=== PATIENT | male | born 1940 | race Caucasian/White ===

== ENCOUNTER → 2017-02-02 | Outpatient (CLI) | payer BC ==
[~2017-02-02] MED LIST: ASPCH81X PO; CHOL1000 PO; IBAN150T PO; RANI150T3 PO; TERA1CAP PO; VITATAB19 PO
== END | disposition home or self-care (01) ==
LOC: C.LAB1850 13:01
PROVIDERS: ATTEND Urology
DX: Z12.5 Encounter for screening for malignant neoplasm of prostate (principal)

== ENCOUNTER 2017-07-15 07:57 | Emergency (ER) | payer BC ==
[~2017-07-15] VITALS: Ht 182.9 cm; Wt 69.4 kg
[2017-07-15 07:58] VITALS: TEMP 36.3; Ht 182.9 cm; Wt 69.4 kg
[2017-07-15 09:15] LABS: BASO ABS # 0.05 K/uL (0-0.2); COMPLETE YES; EOS % 2.1 %; HEMATOCRIT 43.1 % (42-52); IG% 0.2 %; LYMPH % 14.4 %; MEAN CELL VOLUME 98.6 fL (80-100); MEAN CORPUSCULAR HEMOGLOBIN 32.5 pg (25-34); MEAN CORPUSCULAR HGB CONC 32.9 g/dl (32-36); MEAN PLATELET VOLUME 11.3 fL (7.4-10.4); MONO % 8.8 %; NEUT % 73.5 %; PLATELET COUNT 186 K/uL (130-400); RED BLOOD COUNT 4.37 M/uL (4.7-6.1); WHITE BLOOD COUNT 4.87 K/uL (4.8-10.8)
[2017-07-15 09:32] LABS: PROTHROMBIN TIME (PATIENT) 10.8 SECONDS (9.0-12.0)
[2017-07-15 09:33] LABS: BLOOD UREA NITROGEN 17 mg/dl (7-18); BUN/CREATININE RATIO 17.5 (10-20); CALCIUM 8.6 mg/dl (8.5-10.1); CARBON DIOXIDE 30 mmol/L (21-32); CHLORIDE 108 mmol/L (98-107); CREATININE 0.97 mg/dl (0.60-1.40); GLUCOSE 82 mg/dl (70-99); POTASSIUM 4.3 mmol/L (3.5-5.1); SODIUM 142 mmol/L (136-145)
[2017-07-15 09:37] LABS: CKMB/CK RATIO 1.7 (0-3.0)
--- NOTE | 2017-07-15 09:52 | DIAGNOSTIC IMAGING REPORT ---
ADDENDUM Addendum: The initial impression was incorrect. 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 A follow-up MRA or CTA is recommended. Electronically signed by: Hesham Wiley M.D. 07/15/2017 10:10 AM Dictated Date/Time: 07/15/2017 10:[address] OF THE HEAD WITHOUT CONTRAST CLINICAL HISTORY: L hand/leg tingling, facial tingling COMPARISON STUDY: No previous studies for comparison. CT DOSE: 823.94 mGycm TECHNIQUE: Helical axial images of the head were obtained without IV contrast. Automated exposure control was utilized for the study. A dose lowering technique was utilized adhering to the principles of ALARA. FINDINGS: No acute intracranial hemorrhage, midline shift or mass effect is present. Ventricular system is unremarkable for age. The basilar cisterns are patent. There are no extra-axial collections. There is a suspected old lacunar infarct within the left cerebellar hemisphere. There is a 1.1 cm hypodensity within the right basal ganglia. There is prominence of the right MCA bifurcation with an equivocal 6 mm aneurysm shown on axial image 12 of 32.] Matter hypodensity suggests small vessel disease. There are no findings to suggest acute dural sinus thrombosis or acute territorial infarct. There are no significant calvarial abnormalities. IMPRESSION: 1. No acute intracranial hemorrhage or mass effect. 2. 1.1 cm right basal ganglia hypodensity. 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 3. Possible 6 mm right MCA bifurcation aneurysm. A follow-up MRA or CTA is recommended. Electronically signed by: Hesham Wiley M.D. 07/15/2017 9:50 AM Dictated Date/Time: 07/15/2017 9:46 AM
[2017-07-15] MEDS ORDERED: VITATAB19 PO (10:02)
[2017-07-15] MEDS ORDERED: RANI150T3 PO (10:02)
[2017-07-15] MEDS ORDERED: IBAN150T PO (10:02)
[2017-07-15] MEDS ORDERED: TERA1CAP PO (10:02)
[2017-07-15] MEDS ORDERED: CHOL1000 PO (10:02)
[2017-07-15] MEDS ORDERED: ASPCH81X PO (10:02)
--- NOTE | 2017-07-15 10:20 | EMERGENCY ROOM VISIT NOTE ---
ED Visit Note First contact with patient: 08:02 I have personally seen and evaluated the patient with the physician research program assistant. I agree with the diagnostic/management decisions and have personally been involved in these decisions and agree with the diagnosis.
[2017-07-15] MEDS ORDERED: OPTIRAY 320 IV PRN (10:30)
--- NOTE | 2017-07-15 11:18 | DIAGNOSTIC IMAGING REPORT ---
CT ANGIOGRAPHY OF THE NECK WITH CONTRAST CLINICAL HISTORY: Left sided numbness and tingling. Abnormal head CT. COMPARISON STUDY: Carotid ultrasound August 20, [address] performed earlier today. Technique: CT angiography of the carotid and vertebral arteries was obtained using [employer] 320 IV and 3D reconstruction on an independent workstation. NASCET criteria was utilized. A dose lowering technique was utilized adhering to the principles of ALARA. CT DOSE: 767.92 mGycm Findings: Lung apices are clear. No cervical lymphadenopathy is identified. The bilateral common carotid, internal carotid and vertebral arteries are patent. There is no significant stenosis or evidence of dissection within these vessels. The right vertebral artery is dominant. There is mild atherosclerotic plaque within the bilateral cavernous carotids without significant stenosis. There is no right ICA terminus aneurysm. The possible aneurysm on prior head CT was artifactual. Please note that the entirety of the intracranial circulation was not imaged on this exam but the internal carotid arteries were fully imaged on this study. Visualized portions of the posterior circulation are intact. The left A1 segment is hypoplastic. IMPRESSION: 1. No right internal carotid artery terminus aneurysm. The possible aneurysm on prior head CT was artifactual. 2. Unremarkable CTA of the neck. No significant stenosis. No dissection. Electronically signed by: Hesham Wiley M.D. 07/15/2017 11:17 AM Dictated Date/Time: 07/15/2017 11:07 AM
[2017-07-15 13:20] VITALS: BP 144/60; PULSE 61; O2SAT 96
--- NOTE | 2017-07-21 19:07 | EMERGENCY ROOM VISIT NOTE ---
History First contact with patient: 08:02 Chief Complaint: NEURO SYMPTOMS Stated Complaint: NUMBNESS IN FOOT, HAND, NOSE, LEFT SIDE Nursing Triage Summary: Pt. reports waking up around 2 or 3 this morning with numbness and tingling of left arm and leg. He states this is similar to symptoms he gets with his migraines. He took his migraine medication and went back to sleep. He woke up this morning and the numbness in the left extremities continued and was accompanied by numbness across the left side of his face and fullness in his head. Denies confusion, weakness, headache or blurred vision. Pt. states he ate breakfast as normal. He took a low dose aspirin before coming to the ED. History of Present Illness The patient is a 77 year old white male who presents to the Emergency Room with complaints of numbness and tingling in his left arm and leg. He states he has had intermittent tingling in his hands since . His leg symptoms began this morning when he woke up around 2 or 3 AM. He states he similar symptoms with his frequent migraine headaches he took his migraine medication in the early hours and went back to sleep. He awoke this morning with continued symptoms, but no headache. He also felt as though his nose was numb. All of these symptoms have resolved at this time. He denies any difficulty with speech. No difficulty with motor function. He denies any change in strength. No prior history of stroke. No nausea or vomiting. No change in medications. No other complaints. Review of Systems REVIEW OF SYSTEM: HEENT: No dizziness, visual problems, hearing loss, or tinnitus. There is no difficulty swallowing and no oral lesions are present. LYMPH: No adenopathy. PULMONARY: No cough, shortness of breath, sputum production or hemoptysis. CARDIOVASCULAR: No chest pain, palpitations, shortness of breath or peripheral edema. GASTROINTESTINAL: No diarrhea, constipation, nausea, vomiting, or abdominal pain. GENITOURINARY: No dysuria, frequency, urgency or nocturia. NEUROLOGIC: No weakness, muscle tenderness, epilepsy or history of neurological problems. Positive history of chronic headaches. MUSCULOSKELETAL: No history of joint tenderness/swelling. Positive history of arthritis and arthralgias. SKIN: No rashes or lesions. PSYCHIATRIC: No history of depression or mental illness. ENDOCRINE: No history of diabetes, thyroid disorders, or abnormal hair growth. Past Medical/Surgical History Medical history: Significant for migraine headaches Previous surgeries: None Family History Noncontributory. Parents are . Social History Smoking Status: Never Smoker Smokeless Tobacco Use: No Alcohol Use: none Drug Use: none Marital Status: single Housing Status: lives alone Occupation Status: employed Current/Historical Medications Scheduled Aspirin (Aspirin Chewable), 81 MG PO DAILY Cholecalciferol (Vitamin D3), 1 TAB PO DAILY Ibandronate Sodium (Boniva), 150 MG PO MONTHLY Terazosin Hcl (Hytrin), 1 MG PO QPM Vitamin A-Beta Carotene (Vitamin A), 1 TAB PO DAILY Scheduled PRN Ranitidine Hcl (Zantac), 150 MG PO DAILY PRN for GI Upset Allergies Coded Allergies: No Known Allergies (Verified , 07/15/17) Physical Exam Vital Signs Date Time Temp Pulse Resp B/P (MAP) Pulse Ox O2 Delivery O2 Flow Rate FiO2 07/15/17 13:20 61 13 144/60 96 07/15/17 11:35 60 14 147/70 97 Room Air 07/15/17 10:00 60 12 139/76 97 Room Air 07/15/17 09:34 61 21 144/69 97 Room Air 07/15/17 09:00 61 14 125/67 95 Room Air 07/15/17 08:40 61 13 137/68 96 Room Air 07/15/17 08:36 67 07/15/17 07:58 36.3 83 18 127/79 96 Room Air Pain Rating (0-10): 0 Physical Exam Gen.: Well-developed, well-nourished, elderly white male, in no acute distress. Laying on a bed. Looks younger than his stated age. Skin:Warm and dry with good turgor. No rashes or lesions. No ecchymosis or erythema. The patient is not diaphoretic. No abrasions. HEENT: Normocephalic atraumatic. Eyes PERRLA, EOMI. No conjunctiva or scleral injection. Ears TMs intact bilaterally with good light reflexes. No erythema or bulging. No hemotympanum. Canals are patent. Nares patent bilaterally without turbinate enlargement. No significant drainage. No epistaxis. Oropharynx without erythema or exudate. Uvula midline, oral mucosa moist. No lesions present. Heart: Heart RRR. No MGR. Peripheral pulses are 2+. Lungs: Lungs are clear to auscultation. No crackles rhonchi or wheezing. Good air movement. The patient is able to take a deep breath. Abdomen: Abdomen was inspected, auscultated, and palpated. Bowel sounds present x 4. Soft, nontender to palpation. No hepato-splenomegaly. No masses noted. No rebound. Musculoskeletal: Gross motor function is intact to the upper and lower extremities. Symmetric strength for resisted motion. Normal exin-[id number] bilaterally. He is able to raise all 4 extremities against resistance. Neurologic: Cranial nerves II through XII are intact. Gross sensation is intact across the upper and lower extremities by soft touch. Sensation is symmetric. No tingling. Normal stroke scale examination. Medical Decision & Procedures ER Provider Diagnostic Interpretation: CT scan imaging of the brain was performed. This was read by radiology as questionable for a possible 6 mm right internal carotid artery terminus aneurysm lesion. CT scan of the neck was performed with IV contrast. This was read by radiology as entirely normal. Laboratory Results 07/15/17 08:40 Red Blood Count 4.37, Mean Corpuscular Volume 98.6, Mean Corpuscular Hemoglobin 32.5, Mean Corpuscular Hemoglobin Concent 32.9, Mean Platelet Volume 11.3, Neutrophils (%) (Auto) 73.5, Lymphocytes (%) (Auto) 14.4, Monocytes (%) (Auto) 8.8, Eosinophils (%) (Auto) 2.1, Basophils (%) (Auto) 1.0, Neutrophils # (Auto) 3.58, Lymphocytes # (Auto) 0.70, Monocytes # (Auto) 0.43, Eosinophils # (Auto) 0.10, Basophils # (Auto) 0.05 07/15/17 08:40 Test 07/15/17 08:40 White Blood Count 4.87 K/uL (4.8-10.8) Red Blood Count 4.37 M/uL (4.7-6.1) Hemoglobin 14.2 g/dL (14.0-18.0) Hematocrit 43.1 % (42-52) Mean Corpuscular Volume 98.6 fL (80-100) Mean Corpuscular Hemoglobin 32.5 pg (25-34) Mean Corpuscular Hemoglobin Concent 32.9 g/dl (32-36) Platelet Count 186 K/uL (130-400) Mean Platelet Volume 11.3 fL (7.4-10.4) Neutrophils (%) (Auto) 73.5 % Lymphocytes (%) (Auto) 14.4 % Monocytes (%) (Auto) 8.8 % Eosinophils (%) (Auto) 2.1 % Basophils (%) (Auto) 1.0 % Neutrophils # (Auto) 3.58 K/uL (1.4-6.5) Lymphocytes # (Auto) 0.70 K/uL (1.2-3.4) Monocytes # (Auto) 0.43 K/uL (0.11-0.59) Eosinophils # (Auto) 0.10 K/uL (0-0.5) Basophils # (Auto) 0.05 K/uL (0-0.2) RDW Standard Deviation 50.0 fL (36.4-46.3) RDW Coefficient of Variation 13.9 % (11.5-14.5) Immature Granulocyte % (Auto) 0.2 % Immature Granulocyte # (Auto) 0.01 K/uL (0.00-0.02) Prothrombin Time 10.8 SECONDS (9.0-12.0) Prothromb Time International Ratio 1.0 (0.9-1.1) Activated Partial Thromboplast Time 25.5 SECONDS (21.0-31.0) Partial Thromboplastin Ratio 1.0 Anion Gap 4.0 mmol/L (3-11) Est Creatinine Clear Calc Drug Dose 64.6 ml/min Estimated GFR () 88.1 Estimated GFR (Non- 76.1 BUN/Creatinine Ratio 17.5 (10-20) Calcium Level 8.6 mg/dl (8.5-10.1) Total Creatine Kinase 133 U/L (39-308) Creatine Kinase MB 2.3 ng/ml (0.5-3.6) Creatine Kinase MB Ratio 1.7 (0-3.0) Troponin I < 0.015 ng/ml (0-0.045) CBC, PRP, PT/INR, CK/CK-MB, and troponin were obtained. They are all unremarkable. ED Course Patient was evaluated in B pod. He was educated regarding today's findings. Conservative care measures were discussed. IV was established. Labs were obtained. They were unremarkable. CT scan imaging of his head was obtained. At the recommendation of radiology, CT scan imaging of the neck was also obtained. These were unremarkable. Patient's exam was normal. It did not change during his course of stay. He was discharged in satisfactory condition. Return to the ED for any acute changes. Follow-up with his PCP as needed. Patient was seen in conjunction with Dr. Bourne, who also evaluated the patient and concurred with today's diagnosis and treatment plan. Medical Decision Possibility of stroke, migraine headache, ocular migraine, TIA, and carotid artery issue considered, among others Impression Primary Impression: Numbness and tingling of left upper and lower extremity Departure Information Dispostion Home / Self-Care Condition GOOD Forms WORK / SCHOOL INSTRUCTIONS, HOME CARE DOCUMENTATION FORM, IMPORTANT VISIT INFORMATION Patient Instructions My [facility] Additional Instructions Follow-up with your PCP this week for reexamination Return to the ED for any acute changes or worsening symptoms
== END 2017-07-15 13:20 | disposition home or self-care (01) ==
LOC: C.EDB 07:58
DX: R20.0 Anesthesia of skin (principal); R20.2 Paresthesia of skin; Z79.82 Long term (current) use of aspirin

== ENCOUNTER → 2017-09-19 | Outpatient (CLI) | payer BC | END | disposition home or self-care (01) | LOC: C.MAMM 15:02 | PROVIDERS: ATTEND Family Medicine | DX: M81.0 Age-related osteoporosis without current pathological fracture (principal) ==

== ENCOUNTER → 2018-02-12 | Outpatient (CLI) | payer BC | END | disposition home or self-care (01) | LOC: C.LAB1850 09:35 | PROVIDERS: ATTEND Urology | DX: Z12.5 Encounter for screening for malignant neoplasm of prostate (principal) ==